=== PATIENT | male | born 1940 | race Caucasian/White ===

== ENCOUNTER → 2024-11-01 | Outpatient (CLI) | payer MEDICARE ==
--- NOTE | 2024-11-01 14:03 | HMCIMG ---
Exam Type: CT ABD/PEL WO CON RENAL/APPY Clinical Information: CALCULUS OF KIDNEY Comparison: None Contrast: 100 cc's Isovue 370 IV, no complications or adverse reactions CT Dose Index (CTDI): 31.60 mGy Dose Length Product (DLP): 1740.80 total mGy-cm Findings: The kidneys show atrophy and there is severe hydronephrosis of the left kidney without dilatation of the ureter which may represent ureteropelvic junction stricture. The lung bases are clear. The stomach is unremarkable. It shows no wall thickening. No gross ulceration is seen. It is not overly distended. There are no surrounding inflammatory changes. No wall lesions are identified to suggest cancer. The spleen is unremarkable. It is not enlarged. The pancreas shows normal anatomy. It is not fatty replaced. It shows no lesions. The pancreatic duct is not dilated. The gallbladder is unremarkable. It shows no cholelithiasis. The gallbladder wall is normal in thickness. There is no pericholecystic fluid. The is no acute or chronic inflammation noted. The adrenal glands are unremarkable. There is no enlargement. No lesions are noted. The liver is unremarkable. It shows no focal masses. The appendix is unremarkable. It shows no evidence of inflammation. No appendicolith is seen. The small bowel is unremarkable. There is no evidence of dilatation to suggest obstruction. No evidence of adynamic ileus is seen. There is no small bowel wall thickening to suggest enteritis. There is diverticulosis. There is no evidence of acute inflammation to suggest diverticulitis. The colon is otherwise unremarkable. Urinary bladder calculi are seen. The other pelvic structures are unremarkable. The bony and vascular structures are unremarkable for the patient's age. IMPRESSION: The kidneys show atrophy and there is severe hydronephrosis of the left kidney without dilatation of the ureter which may represent ureteropelvic junction stricture. Urinary bladder calculi. Diverticulosis. This study was performed using dose reduction techniques to include automated exposure control and/or adjustment of the mA and/or kV according to patient size.
== END | disposition home or self-care (01) ==
LOC: RAH 12:45
PROVIDERS: ATTEND Urology
DX: K57.90 Diverticulosis of intestine, part unspecified, without perforation or abscess without bleeding (principal); N21.0 Calculus in bladder; N26.1 Atrophy of kidney (terminal); N13.30 Unspecified hydronephrosis; N20.0 Calculus of kidney
CPT/HCPCS: 74176

== ENCOUNTER → 2024-11-15 | Outpatient (CLI) | payer MEDICARE ==
[2024-11-15] MEDS: furoSEMIDE 20MG VIAL ONE (14:14)
--- NOTE | 2024-11-16 09:01 | HMCIMG ---
NM RENOGRAM W/ LASIX REASON: HYDRONEPHROSIS W URETERAL STRUICTURE COMPARISON: CT abdomen and pelvis 11/01/2024 TECHNIQUE: Renogram imaging procedure was performed following injection of 8 mCi technetium 99m MAG3. 20.7 mg Lasix was administered 18 minutes into the examination. FINDINGS: CT images again demonstrate mild to bilateral renal cortical thinning. There is markedly dilated left pelvicalyceal system with out be ureteral distention, possible ureteropelvic junction obstruction. There is prompt concentration of isotope in both kidneys. There is normal washout on the right accelerated by Lasix. There is gradually increasing accumulation on the left, in the pelvicalyceal system. The excretion curve on the left is flat to gradually rising There is normal-appearing downward sloping excretion curve on the right accelerated by Lasix. There is a relatively flat excretion curve on the left. Differential function is 66.8% right and 33.2% left. IMPRESSION: 1. Normal excretion curve on the right. 2. Flat to gradually rising acute relation of activity on the left consistent with retention in the dilated pelvicalyceal system
== END | disposition home or self-care (01) ==
LOC: RAH 13:02
PROVIDERS: ATTEND Urology
DX: N13.1 Hydronephrosis with ureteral stricture, not elsewhere classified (principal)
CPT/HCPCS: 78708; J1940; A9562

== ENCOUNTER → 2025-01-08 | Outpatient (CLI) | payer MEDICARE ==
--- NOTE | 2025-01-08 10:37 | HMCIMG ---
CT ABDOMEN WITHOUT CONTRAST. CT PELVIS WITHOUT CONTRAST. INDICATION: Unspecified hydronephrosis. Trouble urinating and had Kaba catheter placement to assist with urinating. Bladder stone removal x2 and biopsy of bladder. TECHNIQUE: Routine transaxial imaging using 5 mm slice thickness through the abdomen and pelvis without the administration of IV contrast. Thin slice reconstructions are also provided. Coronal and sagittal reformatted images acquired for interpretation. CT was performed with one or more of the following dose reduction techniques: Automated exposure control, adjustment of the mA and/or kV according to patient size, or use of iterative reconstruction technique. COMPARISON: 11/01/2024 FINDINGS: ON NONCONTRAST IMAGING: ABDOMEN: Heart size is normal. Trace bilateral pleural fluid with subjacent subsegmental atelectasis. No abnormal right renal calcifications, hydronephrosis, perinephric inflammation, or proximal hydroureter detected. 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 The liver is normal in size and smooth in contour without biliary duct dilation. The spleen is normal in size and attenuation. The gallbladder is absent. The pancreas appears normal without pancreatic duct dilation. The adrenal glands appear normal. No significant abdominal, retrocrural or retroperitoneal adenopathy noted. No evidence for intra-abdominal free air or organized fluid collection. Mild calcific plaque is noted along the abdominal aortic and iliac vessel mccann without aneurysmal dilation. PELVIS: Enlarged left groin lymph node measuring up to 1.4 cm in short axis diameter. Kaba catheter occupies an empty urinary bladder. No evidence for free air or organized pelvic fluid collection. No significant pelvic adenopathy detected. Several diverticula along the distal colon. Terminal ileum appears unremarkable. The appendix appears normal. Visible osseous structures are intact. IMPRESSION: 1. 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 2. Enlarged left groin lymph node measuring up to 1.4 cm in short axis diameter without any pelvic sidewall, iliac chain, or retroperitoneal lymphadenopathy. 3. Distal colonic diverticulosis. 4. Trace bilateral pleural fluid with subjacent subsegmental atelectasis.
== END | disposition home or self-care (01) ==
LOC: RAH 08:27
PROVIDERS: ATTEND Urology
DX: K57.30 Diverticulosis of large intestine without perforation or abscess without bleeding (principal); N13.0 Hydronephrosis with ureteropelvic junction obstruction; N13.30 Unspecified hydronephrosis; J98.11 Atelectasis; R59.0 Localized enlarged lymph nodes; I70.8 Atherosclerosis of other arteries; I70.0 Atherosclerosis of aorta; Z90.49 Acquired absence of other specified parts of digestive tract
CPT/HCPCS: 74176